=== PATIENT | male | born 1980 | race Caucasian/White ===

== ENCOUNTER → 2017-12-03 | Outpatient (CLI) | payer BC | LOC: M SMT 10:49 | DX: M25.531 Pain in right wrist (principal); M25.532 Pain in left wrist | CPT/HCPCS: 73110 ==

== ENCOUNTER → 2021-01-02 | Outpatient (REF) | payer BC | LOC: M LAB REF 17:58 | PROVIDERS: ATTEND Family Medicine | DX: J20.9 Acute bronchitis, unspecified (principal) ==

== ENCOUNTER → 2022-02-12 | Outpatient (CLI) | payer BC | LOC: M SLEEP HO 14:41 | PROVIDERS: ATTEND Family Medicine | DX: G47.33 Obstructive sleep apnea (adult) (pediatric) (principal); J20.9 Acute bronchitis, unspecified | CPT/HCPCS: 71046; G0399 ==